=== PATIENT | female | born 1945 | race Caucasian/White ===

== ENCOUNTER 2025-03-25 06:34 | Day surgery (SDC) | payer MEDICARE, OTHER ==
[~2025-03-25] VITALS: Ht 144.8 cm; Wt 66.8 kg
[~2025-03-25 06:34] MED LIST: SODIUM CHLORIDE 0.9% 1,000 ML ONE
[2025-03-25] MEDS ORDERED: MIDAZOLAM HCL 2 MG/2 ML VIAL ONE (07:50)
[2025-03-25] MEDS ORDERED: FentaNYL CITRATE PF 100 MCG/2 ML VIAL ONE (07:50)
[2025-03-25] MEDS: SODIUM CHLORIDE 0.9% 1,000 ML IV ONE (08:07)
[2025-03-25 08:10] LABS: GLUCOMETER DEV NAME(LOC) SDS.; GLUCOSE,POINT OF CARE 131 MG/DL (70-110)
[2025-03-25] MEDS ORDERED: BRIM5DRO9 OU (09:43)
[2025-03-25] MEDS ORDERED: DORZ10DR6 OU (09:43)
[2025-03-25] MEDS ORDERED: ATOR20TA PO (09:43)
[2025-03-25] MEDS ORDERED: BENA-18 PO (09:43)
[2025-03-25] MEDS ORDERED: FAMO20 PO (09:43)
[2025-03-25] MEDS ORDERED: SODIUM CHLORIDE 0.9% 1,000 ML ONE (10:01)
[2025-03-25 10:27] VITALS: PULSE 87; RESP 12; O2SAT 99
[2025-03-25] MEDS ORDERED: ALBUTEROL SULFATE 2.5 MG/0.5 ML NEB SOLUTION NEB ONE (12:00)
[2025-03-25] MEDS ORDERED: LIDOCAINE 4% 50 ML SOLUTION ONE (12:00)
[2025-03-25] MEDS ORDERED: BENZOCAINE 20% 50 MCG/SPRAY 57 GM ONE (12:00)
[2025-03-25] MEDS ORDERED: LIDOCAINE 2% 11 ML JELLY ONE (12:00)
== END 2025-03-25 13:25 | disposition home or self-care (01) ==
LOC: SURGERY 06:34
PROVIDERS: ATTEND Internal Medicine Critical Care Medicine
DX: J38.4 Edema of larynx (principal); J47.9 Bronchiectasis, uncomplicated; B37.0 Candidal stomatitis; R05.3 Chronic cough; R06.2 Wheezing; R04.2 Hemoptysis; E78.00 Pure hypercholesterolemia, unspecified; M19.90 Unspecified osteoarthritis, unspecified site; Z90.710 Acquired absence of both cervix and uterus; Z85.828 Personal history of other malignant neoplasm of skin
CPT/HCPCS: 31623; 82962; 87206; 87101; 87220; 87070; 31624; 71045; 87015; J3010; J2250; J2919; J7030; 88108; J7613; Z7610